=== PATIENT | male | born 1955 | race Caucasian/White ===

== ENCOUNTER → 2018-07-05 | Outpatient (CLI) | payer OTHER | LOC: CAT 09:12 | DX: Z13.6 Encounter for screening for cardiovascular disorders (principal); E78.00 Pure hypercholesterolemia, unspecified; Z82.49 Family history of ischemic heart disease and other diseases of the circulatory system ==

== ENCOUNTER → 2020-02-20 | Outpatient (CLI) | payer OTHER | LOC: SJCVC 13:21 | PROVIDERS: ATTEND Internal Medicine Cardiovascular Disease | DX: I45.10 Unspecified right bundle-branch block (principal); R94.31 Abnormal electrocardiogram [ECG] [EKG]; I10 Essential (primary) hypertension; E78.5 Hyperlipidemia, unspecified; Z79.899 Other long term (current) drug therapy; Z87.891 Personal history of nicotine dependence; Z82.49 Family history of ischemic heart disease and other diseases of the circulatory system ==

== ENCOUNTER → 2020-04-11 | Outpatient (CLI) | payer OTHER | LOC: SJCVCIMAG 08:11 | PROVIDERS: ATTEND Internal Medicine Cardiovascular Disease | DX: R93.1 Abnormal findings on diagnostic imaging of heart and coronary circulation (principal); I10 Essential (primary) hypertension; I45.10 Unspecified right bundle-branch block; E78.5 Hyperlipidemia, unspecified; Z79.899 Other long term (current) drug therapy; Z87.891 Personal history of nicotine dependence; Z82.49 Family history of ischemic heart disease and other diseases of the circulatory system ==

== ENCOUNTER → 2020-05-10 | Outpatient (CLI) | payer OTHER | LOC: LAB 08:04 | PROVIDERS: ATTEND Family Medicine | DX: Z20.828 Contact with and (suspected) exposure to other viral communicable diseases (principal) ==

== ENCOUNTER → 2021-01-15 | Outpatient (CLI) | payer OTHER ==
[~2021-01-15] MED LIST: CLARITIN10 M3 PO; DEXILANT60 MG PO; LIPITOR40 MG PO; TENORMIN25 MG PO; ZETIA10 MG PO; ZOLPIDEM TARTRA10 MG PO
== END ==
LOC: PAC 09:14
PROVIDERS: ATTEND Student in an Organized Health Care Education/Training Program
DX: Z01.812 Encounter for preprocedural laboratory examination (principal); Z20.822 Contact with and (suspected) exposure to COVID-19

== ENCOUNTER → 2021-01-16 | Outpatient (CLI) | payer OTHER ==
[~2021-01-16] VITALS: Ht 182.9 cm; Wt 83.9 kg
--- NOTE | ~2021-01-16 | P ---
[facility] [place] [address] PROCEDURE REPORT Name: SAPNA RESTREPO Room #: REG JAM Sanchez#: [id number] Admission: 01/16/21 Attend Phys: Marv Hinojosa Discharge: Date of : 53 Report #: [id number] THIS REPORT FOR: cc: Kai Olivera MD, Rene P. MD McElhinney, Christian C. MD ~ DATE OF SERVICE: 01/16/2021 PROCEDURE PERFORMED: Upper endoscopy with biopsies. HISTORY OF PRESENT ILLNESS: The patient is a 65-year-old male with a history of gastroesophageal reflux disease. He takes Dexilant on a regular basis, began having some increased fatigue recently, was noted to have a drop in his hemoglobin from 15 to 12 range, was noted to have a low iron and ferritin. He has been on oral iron therapy and his hemoglobin has improved. He denies any obvious bright red blood per rectum or melena. He does have a history of colon polyps. No previous history of upper endoscopy. Denies any dysphagia. DESCRIPTION OF PROCEDURE: The risks and benefits of the procedure were explained to the patient, those risks including but not limited to bleeding, perforation and the risk of sedation. He understood these risks and gave informed consent. Sedation was given using propofol per anesthesia. Next, using a standard Olympus upper endoscope, the scope was placed in the patient's mouth and advanced under direct vision through the esophagus, stomach and into the second portion of the duodenum. The larynx was normal in appearance. The upper esophagus was normal. In the mid esophagus, possible Mary esophagitis was noted with white plaques. In the distal esophagus, a possible short segment of Ca's was noted. Biopsies were obtained. There was a moderate gastritis noted in the fundus and gastric body. Biopsies were obtained. No evidence of ulcerations or erosions. The gastric antrum and pylorus was normal. The duodenal bulb, first and second portion were all normal. Random biopsies of the duodenum were also obtained to rule out the possibility of celiac sprue. The scope was then withdrawn and the procedure terminated. The patient tolerated the procedure well. IMPRESSION: 1. Possible Mary esophagitis. 2. Possible short segment Ca's. 3. Gastritis. 4. Otherwise, normal upper endoscopy. RECOMMENDATIONS: 1. Await biopsy results. 2. Continue Dexilant. 3. We will start Mycelex troches for the next few days. 4. We will proceed with colonoscopy next today. [facility] [address] [place] [address] PROCEDURE REPORT Name: SAPNA RESTREPO Room #: REG JAM Sanchez#: [id number] Admission: 01/16/21 Attend Phys: Marv Hinojosa Discharge: Date of : 53 Report #: [id number] Thank you for allowing me to participate in his care. By: [id number] Marv Oropeza MD /nt
--- NOTE | ~2021-01-16 | P ---
[facility] [place] [address] PROCEDURE REPORT Name: SAPNA RESTREPO Room #: REG JAM Sanchez#: [id number] Admission: 01/16/21 Attend Phys: Marv Hinojosa Discharge: Date of : 53 Report #: [id number] THIS REPORT FOR: cc: Kai Olivera MD, Rene P. MD McElhinney, Christian C. MD ~ cc: Kai Olivera MD DATE OF SERVICE: 01/16/2021 DATE OF PROCEDURE: 01/16/2021 PROCEDURE PERFORMED: Colonoscopy with biopsies. HISTORY OF PRESENT ILLNESS: The patient is a 65-year-old male with recent drop in hemoglobin from 15 to 12, ferritin and iron were reportedly low. He has a history of polyps, was taking Dexilant on a regular basis for reflux. Upper endoscopy was just performed, which did show possible Ca's, possible Mary, and gastritis, but no evidence of bleeding. No family history of colon cancer. DESCRIPTION OF PROCEDURE: The risks and benefits of the procedure were explained to the patient, those risks including but not limited to bleeding, perforation, and the risk of sedation. He understood these risks and gave informed consent. Sedation was given using propofol per anesthesia. Next, a digital rectal exam was initially performed, which was normal. Next, using a standard Olympus colonoscope, the scope was placed in the patient's anus and advanced under direct vision to the cecum. The overall prep was good. The cecum and ileocecal valve were normal in appearance. In the ascending colon, a 4 mm sessile polyp was noted. This was removed with cold forceps, otherwise normal. The transverse and descending colon were normal. A few scattered diverticula were noted in the sigmoid colon. Also noted was a 4 mm sessile polyp and removed with cold forceps. The rectal mucosa was normal. On retroflexion, no abnormalities were noted. The scope was then withdrawn and the procedure terminated. The patient tolerated the procedure well. IMPRESSION: 1. Two small colonic polyps. 2. Sigmoid diverticulosis without evidence of bleeding. 3. Normal colonoscopy. RECOMMENDATIONS: 1. Await biopsy results. 2. Repeat colonoscopy in 5 years. 3. The patient reports improvement in hemoglobin on oral iron. Would continue to monitor. [address] [address] PROCEDURE REPORT Name: SAPNA RESTREPO Room #: REG JAM Sanchez#: [id number] Admission: 01/16/21 Attend Phys: Marv Hinojosa Discharge: Date of : 53 Report #: [id number] [address] Consider CT scan of the abdomen and pelvis due to recent history of weight loss if biopsies are negative. Thank you for allowing me to participate in his care. By: [id number] Marv Oropeza MD /nt
--- NOTE | 2021-01-17 17:07 | PATH ---
[facility] [address] [address] PATHOLOGY RPT PROCEDURE Name: KAYE,SAPNA Hailey Room #: REG JAM Joshi.#: [id number] Admission: 01/16/21 Date of : 53 Discharge: Report #: [id number] Path Case #: [id number] [facility] Accession Number: [id number] . 01 Material submitted: . PART A: duodenum - DUODENAL BIOPSY R/O SPRUE; HX OF ANEMIA PART B: gastrointestinal site - GASTRITIS BIOPSY R/O H. PYLORI PART C: esophagus - DISTAL ESOPHAGUS BIOPSY R/O STREET'S. Modifiers: distal PART D: colon - ASCENDING COLON POLYP BIOPSY. Modifiers: ascending PART E: sigmoid colon - SIGMOID COLON POLYP BIOPSY . 01 Clinical history: . COLONOSCOPY/EGD IRON DEFICIENCY . 02 Diagnosis: A. Small bowel mucosa, duodenum R/O sprue, endoscopic biopsy: - No significant diagnostic abnormalities present. - Negative for villous blunting or increase in intraepithelial lymphocytes. . B. Gastric mucosa, gastritis R/O H. pylori, endoscopic biopsy: - Mild chronic inflammation along with reactive changes including occasional dilated fundic glands. - Negative for intestinal metaplasia or atrophy. - Negative for Helicobacter pylori (properly controlled immunohistochemical stain performed). . C. Gastroesophageal mucosa, distal esophagus, endoscopic biopsy: - Gastric cardia-type mucosa with moderate chronic inflammation and reactive changes. - Squamous mucosa with mild esophagitis. - Negative for intestinal metaplasia or dysplasia. . D. Polyp, ascending colon polyp, endoscopic biopsy: - Tubular adenoma. - Negative for high-grade dysplasia. . E. Polyp, sigmoid colon polyp, endoscopic biopsy: - Hyperplastic polyp. - Negative for dysplasia. (IUV:kristina; 01/17/2021) S 01/17/2021 1503 Local . 02 Electronically signed: . Mercedes Gonsales MD, Pathologist [address] [address] PATHOLOGY RPT PROCEDURE Name: SAPNA RESTREPO Room #: REG CLI Laura#: [id number] Admission: 01/16/21 Date of : 53 Discharge: Report #: [id number] Path Case #: [id number] I- [id number] . 01 Gross description: . A. The specimen is submitted in formalin, labeled "Sapna Restrepo duodenal biopsy". Received are 4 segments of pale [place] tissue ranging in size from 0.3 to 0.4 cm in maximum dimensions. The specimen is submitted in cassette A1. . B. The specimen is submitted in formalin, labeled "Kaye, Sapna, gastric biopsy". Received are 2 segments of pale [place] tissue ranging in size from 0.5 to 0.6 cm in maximum dimensions. The specimen is submitted in cassette B1. . C. The specimen is submitted in formalin, labeled "Kaye, Sapna, distal esophagus biopsy". Received is a single segment of pale [place] tissue measuring 0.3 cm in maximum dimensions. The specimen is submitted in cassette C1. . D. The specimen is received in formalin, labeled "Kaye, Sapna, ascending colon polyp biopsy". Received is a single segment of pale [place] tissue measuring 0.6 cm in maximum dimensions. The specimen is submitted entirely in cassette D1. . E. The specimen is submitted in formalin, labeled "Kaye, Sapna, sigmoid colon polyp biopsy". Received are 3 segments of pale [place] tissue ranging in size from 0.2 to 0.3 cm in maximum dimensions. The specimen is submitted in cassette E1. ([facility]; 01/16/2021) NRI/NRI 01/16/2021 1700 Local . 02 Pathologist provided ICD-10: K29.50, K20.90, D12.2, K63.5 . 02 CPT . 032201, 454782, 336027, 658156, 376952, [id number] Specimen Comment: A courtesy copy of this report has been sent to [phone], [phone] Specimen Comment: [id number] Specimen Comment: Report sent to / DR CORONA Performed at: 01 [facility] [address], [place] [id number] MD Erwin Copeland MD Phone: [phone] Performed at: [address] [facility] [id number] MD Mercedes Gonsales MD Phone: [phone]
== END | disposition home or self-care (01) ==
LOC: GI
PROVIDERS: ATTEND Specialist
DX: D50.9 Iron deficiency anemia, unspecified (principal); D12.2 Benign neoplasm of ascending colon; K57.30 Diverticulosis of large intestine without perforation or abscess without bleeding; K29.50 Unspecified chronic gastritis without bleeding; K21.00 Gastro-esophageal reflux disease with esophagitis, without bleeding; I10 Essential (primary) hypertension; E78.5 Hyperlipidemia, unspecified; Z86.010 Personal history of colon polyps; Z98.890 Other specified postprocedural states; Z79.899 Other long term (current) drug therapy; Z85.820 Personal history of malignant melanoma of skin
CPT/HCPCS: 62110; 62900

== ENCOUNTER → 2021-03-04 | Outpatient (CLI) | payer OTHER ==
[2021-03-04 08:44] LABS: CREATININE 0.8 mg/dL (0.7-1.3)
== END ==
LOC: CAT 07:59
PROVIDERS: ATTEND Family Medicine
DX: C43.9 Malignant melanoma of skin, unspecified (principal); I25.10 Atherosclerotic heart disease of native coronary artery without angina pectoris; K76.9 Liver disease, unspecified; K57.30 Diverticulosis of large intestine without perforation or abscess without bleeding; Z87.898 Personal history of other specified conditions

== ENCOUNTER → 2021-04-10 | Outpatient (CLI) | payer OTHER | LOC: SJCVC 09:24 | PROVIDERS: ATTEND Internal Medicine Cardiovascular Disease | DX: I45.10 Unspecified right bundle-branch block (principal); R94.31 Abnormal electrocardiogram [ECG] [EKG]; R93.1 Abnormal findings on diagnostic imaging of heart and coronary circulation; E78.5 Hyperlipidemia, unspecified; I10 Essential (primary) hypertension; R63.4 Abnormal weight loss; R53.83 Other fatigue; Z98.890 Other specified postprocedural states; K57.30 Diverticulosis of large intestine without perforation or abscess without bleeding; Z79.899 Other long term (current) drug therapy; E78.00 Pure hypercholesterolemia, unspecified; Z87.891 Personal history of nicotine dependence; D50.9 Iron deficiency anemia, unspecified ==

== ENCOUNTER → 2021-04-12 | Outpatient (CLI) | payer OTHER | LOC: SJCVCIMAG 10:38 | PROVIDERS: ATTEND Internal Medicine Cardiovascular Disease | DX: I45.10 Unspecified right bundle-branch block (principal); R93.1 Abnormal findings on diagnostic imaging of heart and coronary circulation; I10 Essential (primary) hypertension; R53.83 Other fatigue ==